=== PATIENT | female | born 1995 | race African-American/Black ===

== ENCOUNTER 2021-09-05 01:04 | Inpatient (IN) | payer MEDICAID, OTHER ==
[~2021-09-05] VITALS: Ht 172.7 cm; Wt 112.0 kg
[2021-09-05] MEDS ORDERED: ACETAMINOPHEN 325 MG TAB PO ONE (01:45)
[2021-09-05 02:23] LABS: Basophils # (auto) 0 10 ^3/uL (0-0.2); Basophils % (auto) 0.2 % (0.0-2.0); Eosinophils # (auto) 0.1 10 ^3/uL (0-0.8); Eosinophils % (auto) 0.7 % (0.0-7.0); Hematocrit 36.4 % (36.0-46.0); Hemoglobin 12.3 g/dL (12.2-16.2); Lymphocytes # (auto) 1.5 10 ^3/uL (0.4-5.4); Lymphocytes % (auto) 20.3 % (10.0-50.0); Mean Corpuscular Hgb Conc. 33.7 g/dL (32.0-36.0); Monocytes # (auto) 0.6 10 ^3/uL (0-1.3); Monocytes % (auto) 8.5 % (0.0-12.0); Neutrophils # (auto) 5.3 10 ^3/uL (1.6-8.6); Neutrophils % (auto) 70.3 % (37.0-80.0); Nucleated Red Blood Cells % 0.1 %; Red Blood Cells 4.39 10^6/uL (4.0-5.20); Red Cell Distribution Width 14.2 % (11.8-14.3); White Blood Cell 7.5 10^3/uL (4.4-10.8)
[2021-09-05 02:39] LABS: Albumin 3.6 g/dL (3.4-5.0); BUN/Creatinine Ratio 7.2; Calcium 8.7 mg/dL (8.5-10.1); Potassium 3.9 mmol/L (3.5-5.1)
[2021-09-05 02:49] LABS: Bilirubin, Total 0.4 mg/dL (0.2-1.0); Total Protein 8.1 g/dL (6.4-8.2)
[2021-09-05 03:38] LABS: Urine Amorphous Crystal FEW /hpf (None Seen); Urine Bacteria NONE SEEN /hpf (None Seen); Urine Blood 3+ /uL (Negative); Urine Specific Gravity 1.015 (1.001-1.035); Urine WBC 4 /hpf (0 - 5)
[2021-09-05] MEDS ORDERED: MORPHINE SULFATE 4 MG/ML SYR/VIAL IV ONE (05:15)
[2021-09-05] MEDS: ONDANSETRON HCL 4 MG/2 ML VIAL IV ONE ×2 (05:15→09:03)
[2021-09-05] MEDS ORDERED: SODIUM CHLORIDE 0.9% 1,000 ML IV ONE ×2 (05:30→06:15)
[2021-09-05] MEDS ORDERED: SUCCINYLCHOLINE CHLORIDE 20 MG/ML 10ML VIAL IV ONE (06:42)
[2021-09-05] MEDS ORDERED: ROCURONIUM 10MG/ML 10ML VIAL IV ONE (06:42)
[2021-09-05] MEDS ORDERED: LIDOCAINE 1% HCL (LOCAL ANESTH.) INJ 20ML MDV ONE (06:42)
[2021-09-05 06:59] LABS: Partial Thromboplastin Time 28.2 sec (23.6-33.0)
[2021-09-05] MEDS ORDERED: ACETAMINOPHEN 500 MG TAB PO PRN (07:30)
[2021-09-05] MEDS ORDERED: ONDANSETRON HCL 4 MG/2 ML VIAL IV PRN ×2 (07:30→08:15)
[2021-09-05] MEDS ORDERED: ceFAZolin 1GM/50ML 100 ML IV ONE (07:36)
[2021-09-05] MEDS ORDERED: fentaNYL CITRATE 100 MCG/2 ML VL ONE (07:37)
[2021-09-05] MEDS ORDERED: MEPERIDINE HCL (50 MG/ML) 1 ML VIAL ONE (07:38)
[2021-09-05] MEDS ORDERED: MIDAZOLAM HCL 2MG/2ML 2ml VIAL (1mg/ml) ONE (07:38)
[2021-09-05] MEDS ORDERED: MORPHINE SULFATE 4 MG/ML SYR/VIAL IV PRN (08:15)
[2021-09-05] MEDS ORDERED: LABETALOL HCL 5 MG/ML 4ML SYRINGE IV PRN (08:15)
[2021-09-05] MEDS ORDERED: ePHEDrine SULFATE 50 MG/ML AMP IV PRN (08:15)
[2021-09-05] MEDS ORDERED: MIDAZOLAM HCL 2MG/2ML 2ml VIAL (1mg/ml) IV PRN (08:15)
[2021-09-05] MEDS ORDERED: KETOROLAC TROMETH 30 MG/ML 1ML VIAL IV ONE (08:15)
[2021-09-05] MEDS ORDERED: HYDROmorphone HCL 2 MG/ML VL IV PRN (08:15)
[2021-09-05] MEDS ORDERED: DexAMETHasone SOD PHOS 10MG/1ML VIAL INJ ONE (08:30)
[2021-09-05] MEDS ORDERED: PROPOFOL 10 MG/ML 20 ML IV ONE (08:30)
[2021-09-05] MEDS: LACTATED RINGER'S 1,000 ML IV SCH ×3 (09:05→22:48)
[2021-09-05] MEDS ORDERED: MORPHINE SULFATE INJECTION 2 MG/ML SYRG IV PRN (09:15)
[2021-09-05] MEDS ORDERED: NITROGLYCERIN 0.4 MG SL TAB SL PRN (09:15)
[2021-09-05 11:30] VITALS: BP 110/71
[2021-09-05] MEDS ORDERED: IBUP800T27 PO (15:04)
[2021-09-05] MEDS ORDERED: HYDR-4902 PO (15:04)
[2021-09-05] MEDS ORDERED: DOCU-94 PO (15:04)
[2021-09-05] MEDS: HYDROmorphone HCL 2 MG/ML VL IV PRN (15:24)
[2021-09-05] MEDS: ceFAZolin 1GM/50ML 50 ML IV SCH ×2 (15:49→22:48)
[2021-09-05 20:00] VITALS: BP 117/68
[2021-09-05 20:01] LABS: Basophils # (auto) 0 10 ^3/uL (0-0.2); Eosinophils # (auto) 0 10 ^3/uL (0-0.8); Hematocrit 35.4 % (36.0-46.0); Hemoglobin 11.8 g/dL (12.2-16.2); Lymphocytes # (auto) 0.7 10 ^3/uL (0.4-5.4); Lymphocytes % (auto) 6.1 % (10.0-50.0); Mean Corpuscular Hemoglobin 27.4 pg (28.0-32.0); Mean Corpuscular Hgb Conc. 33.2 g/dL (32.0-36.0); Mean Corpuscular Volume 82.5 fL (80.0-100.0); Monocytes # (auto) 0.3 10 ^3/uL (0-1.3); Monocytes % (auto) 2.2 % (0.0-12.0); Neutrophils % (auto) 91.7 % (37.0-80.0); Red Blood Cells 4.29 10^6/uL (4.0-5.20); Red Cell Distribution Width 14.1 % (11.8-14.3)
[2021-09-05 23:52] VITALS: BP 117/68
[2021-09-06] VITALS (7 sets, daily range): BP systolic 101–124; BP diastolic 62–77
[2021-09-06] MEDS: HYDROmorphone HCL 2 MG/ML VL IV PRN ×2 (00:05→04:38)
[2021-09-06 05:42] LABS: Basophils # (auto) 0 10 ^3/uL (0-0.2); Basophils % (auto) 0.3 % (0.0-2.0); Eosinophils # (auto) 0 10 ^3/uL (0-0.8); Eosinophils % (auto) 0.1 % (0.0-7.0); Hemoglobin 10.9 g/dL (12.2-16.2); Lymphocytes # (auto) 1.1 10 ^3/uL (0.4-5.4); Lymphocytes % (auto) 7.4 % (10.0-50.0); Mean Corpuscular Hemoglobin 26.9 pg (28.0-32.0); Mean Corpuscular Volume 81.4 fL (80.0-100.0); Monocytes # (auto) 0.9 10 ^3/uL (0-1.3); Neutrophils # (auto) 13.3 10 ^3/uL (1.6-8.6); Neutrophils % (auto) 86.2 % (37.0-80.0); Nucleated Red Blood Cells % 0.1 %; Red Blood Cells 4.05 10^6/uL (4.0-5.20); Red Cell Distribution Width 14.1 % (11.8-14.3); White Blood Cell 15.4 10^3/uL (4.4-10.8)
[2021-09-06] MEDS ORDERED: DOCUSATE SOD 100 MG CAP PO PRN (07:30)
[2021-09-06] MEDS ORDERED: RHO (D) IMMUNE GLOBULIN 300 MCG INJ IM PRN (07:30)
[2021-09-06] MEDS ORDERED: BISACODYL 10 MG RECT SUPP PR PRN (07:30)
[2021-09-06] MEDS: ceFAZolin 1GM/50ML 50 ML IV SCH ×3 (07:32→23:17)
[2021-09-06] MEDS ORDERED: LACTATED RINGER'S 1,000 ML IV SCH (07:45)
[2021-09-06] MEDS: HYDROcodone-ACET 5/325MG TAB PO PRN ×2 (11:16→18:10)
[2021-09-06] MEDS: DOCUSATE CALCIUM 240 MG CAP PO SCH (11:16)
[2021-09-06] MEDS: SIMETHICONE 80 MG CHEWABLE TABLET PO SCH ×3 (11:38→21:46)
[2021-09-06] MEDS: LACTATED RINGER'S 1,000 ML IV SCH ×2 (13:50→19:20)
[2021-09-07] MEDS: HYDROcodone-ACET 5/325MG TAB PO PRN (03:02)
[2021-09-07 05:00] VITALS: BP 108/60
[2021-09-07] MEDS: SIMETHICONE 80 MG CHEWABLE TABLET PO SCH ×2 (06:03→12:45)
[2021-09-07] MEDS: ceFAZolin 1GM/50ML 50 ML IV SCH ×2 (06:52→15:15)
[2021-09-07 08:00] VITALS: BP 148/69
[2021-09-07 09:29] VITALS: BP 148/69
[2021-09-07] MEDS: DOCUSATE CALCIUM 240 MG CAP PO SCH (09:57)
[2021-09-07 12:40] VITALS: BP 111/71
[2021-09-07 14:03] VITALS: BP 111/71
[2021-09-07] MEDS: LACTATED RINGER'S 1,000 ML IV SCH (14:45)
== END 2021-09-07 15:27 | disposition home or self-care (01) | DRG 547 ==
LOC: ER 01:04 → OVERFLOW 09:14 → WEST WING 11:27
PROVIDERS: ADMIT Obstetrics & Gynecology; ATTEND Obstetrics & Gynecology
PROC: 0UT54ZZ Resection of Right Fallopian Tube, Percutaneous Endoscopic Approach (ICD-10-PCS; 2021-09-05)
PROC: 0DCW4ZZ Extirpation of Matter from Peritoneum, Percutaneous Endoscopic Approach (ICD-10-PCS; 2021-09-05)
PROC: 10T20ZZ Resection of Products of Conception, Ectopic, Open Approach (ICD-10-PCS; principal; 2021-09-05 07:40)
DX: O00.101 Right tubal pregnancy without intrauterine pregnancy (principal); K66.1 Hemoperitoneum; R71.0 Precipitous drop in hematocrit; Z20.822 Contact with and (suspected) exposure to COVID-19
CPT/HCPCS: 36415; 76801; 76817; 80053; 81001; 84702; 85025; 85610; 85730; 86850; 86900; 86901; 87426; 96361; 96374; 96375; G0378; J0330; J0690; J1100; J1885; J2001; J2250; J2405; J2704